=== PATIENT | female | born 1950 | race African-American/Black ===

== ENCOUNTER 2024-04-23 12:59 | Inpatient (IN) | payer MEDICARE, MEDICAID ==
[~2024-04-23] VITALS: Ht 165.1 cm; Wt 75.3 kg
[2024-04-23 04:00] VITALS: BP 130/44; PULSE 46; RESP 17; TEMP 97.9
[2024-04-23] MEDS ORDERED: IOHEXOL-350 100 ML BOTTLE ONE (13:20)
[2024-04-23 14:02] LABS: BASOPHILS % 0.8 % (0.0-2.0); HEMATOCRIT. 28.6 % (36.0-48.0); HEMOGLOBIN. 9.5 g/dL (12.0-16.0); LYMPHOCYTES % 31.4 % (20.0-50.0); MEAN CORPUSCULAR HEMOGLOBIN 29.6 pg (28.0-32.0); MEAN CORPUSCULAR HGB CONC 33.2 g/dL (31.0-37.0); MEAN CORPUSCULAR VOLUME 89.1 fL (81.0-99.0); MEAN PLATELET VOLUME 8.4 fl (7.4-10.4); MONOCYTES % 7.5 % (2.0-8.0); NEUTROPHILS % 54.3 % (40.0-76.0); PLATELET 141 x1000/uL (130-400); RED BLOOD CELL COUNT 3.21 mill/uL (4.2-5.4)
[2024-04-23 14:07] LABS: CHLORIDE 110 mEq/L (98-107); POTASSIUM 3.7 mEq/L (3.5-5.1); SODIUM 138 mEq/L (136-145)
[2024-04-23 14:08] LABS: CALCIUM 9.1 mg/dL (8.7-10.4); CARBON DIOXIDE 21 mEq/L (21-32)
[2024-04-23 14:11] LABS: PROTHROMBIN TIME 10.8 sec (9.6-11.0)
[2024-04-23 14:13] LABS: GLUCOSE 107 mg/dL (70-105); UREA NITROGEN BLOOD 37 mg/dL (9-23)
[2024-04-23 14:15] LABS: ETHANOL BLOOD < 10 mg/dL (<10)
[2024-04-23 14:16] LABS: TROPONIN I HIGH SENSITIVITY 42 ng/L (3.0-34)
[2024-04-23] MEDS ORDERED: ONDANSETRON HCL 4MG/2ML INJ IV PRN (15:00)
[2024-04-23] MEDS ORDERED: DOCUSATE SODIUM 100MG CAPSULE PO PRN (15:00)
[2024-04-23] MEDS ORDERED: CLONIDINE 0.1MG TABLET PO PRN (15:00)
[2024-04-23] MEDS ORDERED: IPRATROPIUM/ALBUTEROL 0.5-3(2.5)MG/3ML NEB HHN PRN (15:00)
[2024-04-23] MEDS: SODIUM CHLORIDE 0.45% 1,000 ML IV ONE (17:10)
[2024-04-23] MEDS: ENOXAPARIN 30MG/0.3ML SYR SUBCUT SCH (17:19)
[2024-04-23 17:33] LABS: T4 FREE 0.84 ng/dL (0.89-1.76); THYROID STIMULATING HORMONE 2.3 uIU/mL (0.55-4.78)
[2024-04-23] MEDS: CLOPIDOGREL 75MG TABLET PO SCH (18:17)
[2024-04-23 20:00] VITALS: BP 136/85; PULSE 82; RESP 19; TEMP 98
[2024-04-23] MEDS: ATORVASTATIN CALCIUM 40MG TABLET PO SCH (22:51)
[2024-04-23] MEDS: FAMOTIDINE 20MG TABLET PO SCH (22:51)
[2024-04-24] VITALS: BP_SYST 125; BP_SYST 130; BP_DIAS 44; BP_DIAS 85; PULSE 48; PULSE 82; RESP 17; RESP 19; TEMP 97.6; TEMP 98
[2024-04-24 04:00] VITALS: BP 130/44; PULSE 46; RESP 17; TEMP 97.9
[2024-04-24] MEDS ORDERED: NIFE-32 PO (05:29)
[2024-04-24] MEDS ORDERED: DEXT15SY3 PO (05:29)
[2024-04-24] MEDS ORDERED: POTA8CAP20 PO (05:29)
[2024-04-24 05:34] LABS: BASOPHILS % 0.6 % (0.0-2.0); EOSINOPHILS % 4.9 % (0.0-5.0); HEMATOCRIT. 29.6 % (36.0-48.0); HEMOGLOBIN. 9.8 g/dL (12.0-16.0); LYMPHOCYTES % 32.7 % (20.0-50.0); MEAN CORPUSCULAR HEMOGLOBIN 29.6 pg (28.0-32.0); MEAN CORPUSCULAR HGB CONC 33.1 g/dL (31.0-37.0); MEAN CORPUSCULAR VOLUME 89.4 fL (81.0-99.0); MEAN PLATELET VOLUME 9.1 fl (7.4-10.4); MONOCYTES % 7.6 % (2.0-8.0); NEUTROPHILS % 54.2 % (40.0-76.0); PLATELET 142 x1000/uL (130-400); RED BLOOD CELL COUNT 3.31 mill/uL (4.2-5.4); RED CELL DISTRIBUTION WIDTH 13.5 % (11.6-14.6); WHITE BLOOD COUNT 6.8 x1000/uL (4.5-11.0)
[2024-04-24 05:38] LABS: CALCIUM 9.4 mg/dL (8.7-10.4); POTASSIUM 3.8 mEq/L (3.5-5.1)
[2024-04-24] MEDS ORDERED: BENA40TA91 PO (06:09)
[2024-04-24] MEDS ORDERED: CHLO50TA PO (06:09)
[2024-04-24] MEDS ORDERED: BACL-141 PO (06:09)
[2024-04-24] MEDS ORDERED: TOPUD PO (06:09)
[2024-04-24 08:00] VITALS: BP 104/45; PULSE 46; RESP 18; TEMP 97
[2024-04-24 08:11] LABS: CREATININE 1.3 mg/dL (0.6-1.0)
[2024-04-24] MEDS: LEVOTHYROXINE SODIUM 25MCG TABLET PO SCH (08:38)
[2024-04-24] MEDS: DEXT 5%/0.45% NACL 1000ML 1,000 ML IV SCH (08:39)
[2024-04-24] MEDS: ASPIRIN 81MG EC TABLET PO SCH (08:39)
[2024-04-24 09:10] LABS: T4 FREE 0.91 ng/dL (0.89-1.76)
[2024-04-24 12:00] VITALS: BP 122/62; PULSE 54; RESP 18; TEMP 97.6
[2024-04-24] MEDS ORDERED: HEPARIN SODIUM 1,000 UNIT/1ML VIAL IV ONE (12:55)
[2024-04-24] MEDS ORDERED: LIDOCAINE HCL 1% 10 MG/ML 10ML VIAL ONE (12:55)
[2024-04-24] MEDS ORDERED: BUPIVACAINE HCL/PF 0.5% (5MG/ML) 10ML ONE ×2 (12:55→12:56)
[2024-04-24] MEDS ORDERED: THROMBIN (BOVINE) 5000 UNITS/VIAL TOP ONE (12:55)
[2024-04-24] MEDS ORDERED: POLYMYXIN B SULFATE 500000 UNITS/VIAL ONE (13:25)
[2024-04-24] MEDS ORDERED: ATROPINE SULFATE 1MG/ML VIAL IV PRN (14:00)
[2024-04-24 16:00] VITALS: BP 152/57; PULSE 47; RESP 18; TEMP 97
[2024-04-24] MEDS: ACETAMINOPHEN 325MG TABLET PO PRN (18:27)
[2024-04-24] MEDS ORDERED: ATROPINE SULFATE 1MG/10ML SYR IV PRN (19:51)
[2024-04-24 20:00] VITALS: BP 161/49; PULSE 53; RESP 20; TEMP 98
[2024-04-24] MEDS: ATORVASTATIN CALCIUM 40MG TABLET PO SCH (22:03)
[2024-04-25] VITALS: BP 127/59; PULSE 57; RESP 20; TEMP 97.8
[2024-04-25 04:00] VITALS: BP 142/59; PULSE 54; RESP 18; TEMP 98.6
[2024-04-25 06:00] LABS: EOSINOPHILS % 6.5 % (0.0-5.0); HEMATOCRIT. 29.6 % (36.0-48.0); LYMPHOCYTES % 41.3 % (20.0-50.0); MEAN CORPUSCULAR HEMOGLOBIN 29.8 pg (28.0-32.0); MEAN CORPUSCULAR HGB CONC 33.8 g/dL (31.0-37.0); MEAN CORPUSCULAR VOLUME 88.2 fL (81.0-99.0); MEAN PLATELET VOLUME 9.4 fl (7.4-10.4); MONOCYTES % 8.6 % (2.0-8.0); NEUTROPHILS % 42.6 % (40.0-76.0); PLATELET 144 x1000/uL (130-400); RED BLOOD CELL COUNT 3.35 mill/uL (4.2-5.4); RED CELL DISTRIBUTION WIDTH 13.5 % (11.6-14.6); WHITE BLOOD COUNT 5.2 x1000/uL (4.5-11.0)
[2024-04-25 06:09] LABS: POTASSIUM 3.7 mEq/L (3.5-5.1)
[2024-04-25 06:10] LABS: CALCIUM 9.2 mg/dL (8.7-10.4)
[2024-04-25 06:15] LABS: CREATININE 1.3 mg/dL (0.6-1.0)
[2024-04-25 08:00] VITALS: BP 160/65; PULSE 61; RESP 18; TEMP 98
[2024-04-25] MEDS ORDERED: CHLO25TA2 PO (10:58)
[2024-04-25] MEDS ORDERED: CLONIDINE 0.1MG TABLET PO PRN (11:00)
[2024-04-25 12:00] VITALS: BP 154/58; PULSE 55; RESP 18; TEMP 97.6
[2024-04-25] MEDS: CHLORTHALIDONE 25MG TABLET PO SCH (15:22)
[2024-04-25 16:00] VITALS: BP 144/100; PULSE 67; RESP 20; TEMP 97
[2024-04-25 20:00] VITALS: BP 121/38; PULSE 71; RESP 18; TEMP 97.7
[2024-04-25] MEDS: HYDRALAZINE HCL 10MG TABLET PO SCH (21:50)
[2024-04-26] VITALS: BP 126/38; PULSE 53; RESP 17; TEMP 97.7
[2024-04-26 04:00] VITALS: BP 151/53; PULSE 50; RESP 17; TEMP 97.9
[2024-04-26 08:00] VITALS: BP_SYST 161; BP_DIAS 53; BP_DIAS 64; PULSE 50; PULSE 61; RESP 18; RESP 19; TEMP 97.7; TEMP 98.2
[2024-04-26] MEDS: FLUTICASONE PROPIONATE 50MCG/SPRAY BOTTLE BOTHNSTRLS SCH (08:35)
[2024-04-26] MEDS: HYDRALAZINE HCL 10MG TABLET PO SCH (08:35)
[2024-04-26] MEDS ORDERED: LIP40 PO (10:28)
[2024-04-26] MEDS ORDERED: CLOP-31 PO (10:28)
[2024-04-26] MEDS ORDERED: ASPI-1406 PO (10:28)
[2024-04-26 12:00] VITALS: BP 179/63; PULSE 56; RESP 18; TEMP 97.9
[2024-04-26 16:00] VITALS: BP 142/67; PULSE 64; RESP 19; TEMP 97.5
[2024-04-26 20:00] VITALS: BP 147/72; PULSE 65; RESP 18; TEMP 97.8
[2024-04-26] MEDS: HYDRALAZINE HCL 50MG TABLET PO SCH (21:05)
[2024-04-27] VITALS: BP 127/61; PULSE 60; RESP 20; TEMP 97.5
[2024-04-27 08:00] VITALS: BP 125/47; PULSE 68; RESP 19; TEMP 98.1
[2024-04-27 12:00] VITALS: BP 147/71; PULSE 65; RESP 18; TEMP 97.8
[2024-04-27 13:49] VITALS: BP 134/70; PULSE 71; TEMP 98.1; O2SAT 98
[2024-04-27 16:00] VITALS: BP 148/42; RESP 60; TEMP 97.9
[2024-04-27] MEDS: FAMOTIDINE 20MG TABLET PO SCH (17:15)
== END 2024-04-27 18:25 | disposition home health service (06) | DRG 45 ==
LOC: ER 13:28 → EDBEDREQ 14:48 → EDBEDREQSVC 18:57 → 5WST 20:19 → 8WST 20:51
PROVIDERS: ADMIT Internal Medicine; ATTEND Internal Medicine
DX: I63.9 Cerebral infarction, unspecified (principal); N17.9 Acute kidney failure, unspecified; D63.8 Anemia in other chronic diseases classified elsewhere; I24.89 Other forms of acute ischemic heart disease; I65.23 Occlusion and stenosis of bilateral carotid arteries; F20.9 Schizophrenia, unspecified; I12.9 Hypertensive chronic kidney disease with stage 1 through stage 4 chronic kidney disease, or unspecified chronic kidney disease; N18.9 Chronic kidney disease, unspecified; Z20.822 Contact with and (suspected) exposure to COVID-19; R00.1 Bradycardia, unspecified; E78.5 Hyperlipidemia, unspecified; R29.707 NIHSS score 7; Z82.49 Family history of ischemic heart disease and other diseases of the circulatory system; Z79.899 Other long term (current) drug therapy; Z79.82 Long term (current) use of aspirin; Z79.02 Long term (current) use of antithrombotics/antiplatelets
CPT/HCPCS: 36415; 70496; 70498; 70551; 71045; 80048; 80061; 80320; 82962; 83036; 83880; 84439; 84443; 84481; 84484; 85025; 85379; 86376; 87426; 92610; 93005; 93306; 93970; 97116; 97162; 97165; 99285; J1644; J1650; J3490; Q9967; G0480